=== PATIENT | female | born 1945 | race Caucasian/White ===

== ENCOUNTER 2018-02-06 13:15 | Inpatient (IN) ==
--- NOTE | 2018-02-06 13:21 | Emergency Department Note ---
Disposition Clinical Impression: Anemia Qualifiers: Anemia type: unspecified type Qualified Code(s): D64.9 - Anemia, unspecified Disposition: Transfer SNF General Adult HPI - General Chief complaint: ED General Medical Stated complaint: LOW HEMOGLOBIN Time Seen by Provider: 02/06/18 13:15 Source: patient Mode of arrival: EMS Limitations: no limitations Nursing Notes Reviewed: Yes Vital Signs Reviewed: Yes - History of Present Illness HPI Narrative: Patient presents by EMS from the [facility] where she resides feeling weak and tired for the past 3 days. Her hemoglobin was reportedly 3.5 so she was sent to the emergency department. She denies any fevers or chills nausea vomiting chest pain shortness of breath or other complaints Onset (ago): day(s) (3) Location: other (generalized weakness) Pain Scale: 0 Improves with: nothing Worsens with: nothing Associated symptoms: Reports: weakness. Denies: chest pain, cough, fever/chills , headaches, loss of appetite, nausea/vomiting, shortness of breath - Related Data Home Medications Medication Instructions Recorded Confirmed Divalproex Sodium [Depakote] 125 mg PO TID 08/24/16 08/24/16 Levothyroxine [Synthroid] 50 mcg PO 0630 08/24/16 02/06/18 Magnesium Hydroxide [Milk of 30 ml PO DAILY PRN 08/24/16 02/06/18 Magnesia] Perphenazine 2 mg PO DAILY 08/24/16 02/06/18 Venlafaxine [Effexor] 75 mg PO BID 08/24/16 02/06/18 Atorvastatin Calcium [Lipitor] 20 mg PO HS 02/06/18 02/06/18 Cran/Vitc/Mannose/Fos/Bromeln 3,875 mg PO BID 02/06/18 02/06/18 [Uti-Stat Liquid] Mv-Mn/FA/Vit K/Lycop/Lut/Coq10 1 each PO DAILY 02/06/18 02/06/18 [Daily Multivitamin Capsule] Colt/Poly/DEX Opth OINT [Maxitrol 1 appl LEFT EYE DAILY 02/06/18 02/06/18 OPTH Oint] Previous Rx's Medication Instructions Recorded Allopurinol [Zyloprim] 200 mg PO DAILY tablet 08/27/16 Cholecalciferol (D-3) [Vitamin D] 1,000 unit PO DAILY tablet 08/27/16 Aspirin [Lo-Dose Aspirin EC] 81 mg PO DAILY 365 Days tablet. 02/08/18 Metoprolol [Lopressor] 50 mg PO BID #0 02/08/18 Allergies Allergy/AdvReac Type Severity Reaction Status Date / Time aripiprazole [From Abilify] Allergy Rash Verified 08/24/16 12:52 All systems ED: reviewed and negative except as stated. Review of Systems: As Per HPI Constitutional: Reports: as per HPI, weakness. Denies: fever, chills, weight change Eyes: Denies: eye pain, eye discharge, vision change ENT ED: Denies: ear pain, throat pain, dental pain, hearing loss, epistaxis, congestion, dysphagia Cardiovascular: Denies: chest pain, palpitations, dyspnea on exertion, edema, syncope Respiratory: Denies: cough, dyspnea, wheezes, hemoptysis, stridor Gastrointestinal: Denies: abdominal pain, nausea, vomiting, diarrhea, constipation, hematemesis, melena, hematochezia Genitourinary: Reports: as per HPI Musculoskeletal: Denies: back pain, neck pain, arthralgia, myalgia Integumentary: Denies: rash, abrasion, lesions Neurological: Denies: headache, weakness, numbness, paresthesias, confusion, abnormal gait, vertigo Psychiatric: Denies: anxiety, depression, suicidal thoughts, homicidal thoughts , auditory hallucinations, visual hallucinations Endocrine: Denies: fatigue Hematological/Lymphatic: Denies: easy bleeding, easy bruising Allergic/Immunologic: Denies: facial swelling, urticaria Past Medical History - Past Medical History Attestation: Yes The following information was validated with the patient. Source: patient Medical history: Reports: dementia, GERD, hyperlipidemia, hypertension, renal disease, thyroid disease, other Psychiatric history: Reports: anxiety, depression - Social History Smoking Status: Unknown if ever smoked Smokeless Tobacco Status: No Alcohol use: Reports: none Drug use: Reports: none Physical Exam - General Limitations: no limitations General appearance: alert, in no apparent distress - Head Head exam: atraumatic, normocephalic, normal inspection - Eye Eye exam: Present: normal appearance, PERRL, EOMI, other (pale conjunctival membranes) - ENT ENT exam: normal exam, normal oropharynx, mucous membranes moist - Neck Neck exam: Present: normal inspection, full ROM, trachea midline - Chest Chest inspection: Present: normal inspection, symmetric chest wall rise - Respiratory Respiratory exam: Present: normal lung sounds bilaterally - Cardiovascular Cardiovascular exam: Present: regular rate, normal rhythm, normal heart sounds - Abdominal Exam Abdominal exam: Present: soft, Non-Tender, normal bowel sounds - Extremities Exam Extremities exam: Present: normal inspection - Neurological Exam Neurological exam: Present: alert - Psychiatric Psychiatric exam: Present: normal affect, normal mood - Skin Skin exam: Present: warm, dry, intact Course Vital Signs Temperature 97.3 F L 02/06/18 13:17 Pulse Rate 97 02/06/18 13:17 Respiratory Rate 16 02/06/18 13:17 Blood Pressure 131/52 02/06/18 13:17 O2 Sat by Pulse Oximetry 96 02/06/18 13:17 Temperature 97.4 F L 02/08/18 06:41 Pulse Rate 77 02/08/18 06:41 Respiratory Rate 16 02/08/18 06:41 Blood Pressure 145/72 02/08/18 06:40 O2 Sat by Pulse Oximetry 93 02/08/18 06:41 Oxygen Delivery Oxygen Delivery Nasal Cannula Medical Decision Making - Lab Data Lab results reviewed: Yes I reviewed the patient's lab results. Result diagrams: 02/08/18 07:15 02/07/18 02:29 Lab Results 02/06/18 02/06/18 02/06/18 Range/Units 13:43 13:43 13:43 WBC 11.4 H (4.3-11.1) K/mcL RBC 1.88 L (3.82-4.97) M/mcL Hgb 3.7 L* (11.5-15.4) g/dL Hct 14.4 L* (35.3-44.9) % MCV 76.6 L (83.0-100.0) fL MCH 19.7 L (28.0-33.3) pg MCHC 25.7 L (31.6-35.5) g/dL RDW 20.2 H (11.5-14.5) % Plt Count 469 H (140-400) K/mcL MPV 9.3 L (9.4-12.4) fL Immature Gran % 0.8 (0-4) % Seg Neutrophils % 82.7 % Lymphocytes % 9.6 % Monocytes % 6.7 % Eosinophils % 0.0 % Basophils % 0.2 % Neutrophils # 9.4 H (1.6-8.9) K/mcL Lymphocytes # 1.1 (0.6-4.6) K/mcL Monocytes # 0.8 (0.0-1.3) K/mcL Eosinophils # 0.0 (0.0-0.6) K/mcL Basophils # 0.0 (0.0-0.2) K/mcL Nucleated RBCs/100 WBC 1.1 H (0) /100 WBC Polychromasia 1+ A (Not Present) Hypochromasia Present A (Not Present) Anisocytosis 1+ A (Not Present) Microcytosis Present A (Not Present) PT 15.3 H (9.4-12.1) Seconds INR 1.4 APTT 30.9 (26.0-36.0) Seconds Sodium 138 (136-145) mEq/L Potassium 4.2 (3.5-5.1) mEq/L Chloride 106 (98-107) mEq/L Carbon Dioxide 25 (23-29) mEq/L BUN 29 H (8-23) mg/dL Creatinine 1.00 (0.60-1.20) mg/dL Est GFR ( Amer) > 60 (> 60) Est GFR (Non-Af Amer) 55 L (> 60) BUN/Creatinine Ratio 29 H (6-26) Glucose 155 H (70-105) mg/dL Calculated Osmolality 295 (280-300) Calcium 8.7 (8.6-10.3) mg/dL Stool Occult Blood (Negative) Blood Type Antibody Screen Crossmatch 02/06/18 02/06/18 02/07/18 Range/Units 13:43 14:05 02:29 WBC 11.2 H (4.3-11.1) K/mcL RBC 2.55 L (3.82-4.97) M/mcL Hgb 6.2 L D (11.5-15.4) g/dL Hct 20.7 L (35.3-44.9) % MCV 81.2 L (83.0-100.0) fL MCH 24.3 L (28.0-33.3) pg MCHC 30.0 L (31.6-35.5) g/dL RDW 21.0 H (11.5-14.5) % Plt Count 390 (140-400) K/mcL MPV 9.1 L (9.4-12.4) fL Immature Gran % 0.7 (0-4) % Seg Neutrophils % 75.7 % Lymphocytes % 14.6 % Monocytes % 8.6 % Eosinophils % 0.0 % Basophils % 0.4 % Neutrophils # 8.5 (1.6-8.9) K/mcL Lymphocytes # 1.6 (0.6-4.6) K/mcL Monocytes # 1.0 (0.0-1.3) K/mcL Eosinophils # 0.0 (0.0-0.6) K/mcL Basophils # 0.0 (0.0-0.2) K/mcL Nucleated RBCs/100 WBC 0.6 H (0) /100 WBC Polychromasia (Not Present) Hypochromasia (Not Present) Anisocytosis (Not Present) Microcytosis (Not Present) PT (9.4-12.1) Seconds INR APTT (26.0-36.0) Seconds Sodium (136-145) mEq/L Potassium (3.5-5.1) mEq/L Chloride (98-107) mEq/L Carbon Dioxide (23-29) mEq/L BUN (8-23) mg/dL Creatinine (0.60-1.20) mg/dL Est GFR ( Amer) (> 60) Est GFR (Non-Af Amer) (> 60) BUN/Creatinine Ratio (6-26) Glucose (70-105) mg/dL Calculated Osmolality (280-300) Calcium (8.6-10.3) mg/dL Stool Occult Blood Negative (Negative) Blood Type O POSITIVE Antibody Screen NEGATIVE Crossmatch See Detail 02/07/18 Range/Units 02:29 WBC (4.3-11.1) K/mcL RBC (3.82-4.97) M/mcL Hgb (11.5-15.4) g/dL Hct (35.3-44.9) % MCV (83.0-100.0) fL MCH (28.0-33.3) pg MCHC (31.6-35.5) g/dL RDW (11.5-14.5) % Plt Count (140-400) K/mcL MPV (9.4-12.4) fL Immature Gran % (0-4) % Seg Neutrophils % % Lymphocytes % % Monocytes % % Eosinophils % % Basophils % % Neutrophils # (1.6-8.9) K/mcL Lymphocytes # (0.6-4.6) K/mcL Monocytes # (0.0-1.3) K/mcL Eosinophils # (0.0-0.6) K/mcL Basophils # (0.0-0.2) K/mcL Nucleated RBCs/100 WBC (0) /100 WBC Polychromasia (Not Present) Hypochromasia (Not Present) Anisocytosis (Not Present) Microcytosis (Not Present) PT (9.4-12.1) Seconds INR APTT (26.0-36.0) Seconds Sodium 139 (136-145) mEq/L Potassium 4.1 (3.5-5.1) mEq/L Chloride 107 (98-107) mEq/L Carbon Dioxide 23 (23-29) mEq/L BUN 23 (8-23) mg/dL Creatinine 0.71 (0.60-1.20) mg/dL Est GFR ( Amer) > 60 (> 60) Est GFR (Non-Af Amer) > 60 (> 60) BUN/Creatinine Ratio 32 H (6-26) Glucose 109 H (70-105) mg/dL Calculated Osmolality 292 (280-300) Calcium 8.3 L (8.6-10.3) mg/dL Stool Occult Blood (Negative) Blood Type Antibody Screen Crossmatch
[2018-02-06 13:48] LABS: Basophils % 0.2 %; Immature Granulocytes % 0.8 % (0-4); Lymphocytes # 1.1 K/mcL (0.6-4.6); Lymphocytes % 9.6 %; Mean Corpuscular HGB Conc 25.7 g/dL (31.6-35.5); Mean Corpuscular Hemoglobin 19.7 pg (28.0-33.3); Mean Corpuscular Volume 76.6 fL (83.0-100.0); Mean Platelet Volume 9.3 fL (9.4-12.4); Monocytes # 0.8 K/mcL (0.0-1.3); Monocytes % 6.7 %; Neutrophils # 9.4 K/mcL (1.6-8.9); Nucleated Red Blood Cells 1.1 /100 WBC (0); Platelet Count 469 K/mcL (140-400); Red Blood Count 1.88 M/mcL (3.82-4.97); Red Cell Distribution Width 20.2 % (11.5-14.5); Segmented Neutrophils % 82.7 %
[2018-02-06 13:54] LABS: INR 1.4; Prothrombin Time 15.3 Seconds (9.4-12.1)
[2018-02-06 13:56] LABS: Activated Partial Thrombo Time 30.9 Seconds (26.0-36.0)
[2018-02-06 13:58] LABS: Hematocrit 14.4 % (35.3-44.9); Hemoglobin 3.7 g/dL (11.5-15.4)
[2018-02-06 14:03] LABS: BUN/Creatinine Ratio 29 (6-26); Blood Urea Nitrogen 29 mg/dL (8-23); Calcium 8.7 mg/dL (8.6-10.3); Carbon Dioxide 25 mEq/L (23-29); Chloride 106 mEq/L (98-107); Glucose 155 mg/dL (70-105); Osmolality,Calculated 295 (280-300); Potassium 4.2 mEq/L (3.5-5.1); Sodium 138 mEq/L (136-145); eGFR For Non-African Americans 55 (> 60)
[2018-02-06 14:34] LABS: Anisocytosis 1+ (Not Present); Hypochromasia Present (Not Present); Microcytosis Present (Not Present); Polychromasia 1+ (Not Present)
[2018-02-06] MEDS ORDERED: Naloxone 0.4 MG/ML INJ IVP PRN (16:20)
[2018-02-06] MEDS ORDERED: 0.9 % Sodium Chloride 1,000 ML IVC SCH (16:20)
[2018-02-06] MEDS ORDERED: MOM Conc 10 ML UD.LIQ PO PRN (16:20)
--- NOTE | 2018-02-06 17:08 | Internal Med History&Physical ---
Date of Encounter: 02/06/18 Time of Encounter: 16:40 Assessment and Plan (1) Anemia Current visit: No Status: Acute Suspect iron deficiency. Will order anemia testing and give blood transfusion. Hold Xarelto for now Qualifiers: Anemia type: unspecified type Qualified Code(s): D64.9 - Anemia, unspecified (2) Vitamin D deficiency Current visit: Yes Status: Acute Vitamin D level was 19 on 08/25/2016. Will recheck. (3) ARF (acute renal failure) Current visit: No Status: Acute BUN and creatinine were 29 and 1.00 respectively in emergency room with estimated GFR 55. Stool was guaiac negative. Will hold lisinopril and monitor renal indices. Qualifiers: Acute renal failure type: unspecified Qualified Code(s): N17.9 - Acute kidney failure, unspecified (4) Hypothyroidism Current visit: No Status: Chronic Continue Synthroid Qualifiers: Hypothyroidism type: unspecified Qualified Code(s): E03.9 - Hypothyroidism , unspecified Internal Medicine - H&P: HPI Chief complaint: Anemia Admitted From: Emergency Dept Plans for Post Hospital Care: Transfer [facility] History of present illness: Ms. Davies is a 72 year old female who was sent to emergency room from the senior care after she was found to have severe anemia on blood tests drawn today. She has had 2-3 falls without significant injury in the past few weeks. Evaluation in emergency room confirmed severe anemia with hemoglobin 3.7. Stool was Hemoccult negative. She was admitted to [facility] floor for blood transfusion and ongoing care needs. She denies abdominal pain melena or hematochezia. Review of available records show at the August [facility] hospitalization she reported history of anemia in the past but it had resolved. She has been on Xarelto for history of bilateral DVTs in 2012. She has history of hypertension but no PR heart failure or pulmonary embolus. She does ambulate some at the senior care. Past Med Surg Social Fam HX - Past Medical History Medical history: dementia, GERD, hyperlipidemia, hypertension, renal disease, thyroid disease, other Psychiatric history: anxiety, depression - Social History Smoking Status: Unknown if ever smoked Smokeless Tobacco Status: No Alcohol use: none Drug use: none Internal Medicine - H&P: Meds Divalproex Sodium [Depakote] 125 mg PO TID 08/24/16 [History] Levothyroxine [Synthroid] 50 mcg PO 0630 08/24/16 [History] Lisinopril [Zestril] 20 mg PO DAILY 08/24/16 [History] Magnesium Hydroxide [Milk of Magnesia] 30 ml PO DAILY PRN 08/24/16 [History] Metoprolol [Lopressor] 25 mg PO BID 08/24/16 [History] Perphenazine 2 mg PO DAILY 08/24/16 [History] Rivaroxaban [Xarelto] 20 mg PO DAILY 08/24/16 [History] Venlafaxine [Effexor] 75 mg PO BID 08/24/16 [History] Allopurinol [Zyloprim] 200 mg PO DAILY tablet 08/27/16 [Rx] Cholecalciferol (D-3) [Vitamin D] 1,000 unit PO DAILY tablet 08/27/16 [Rx] Atorvastatin Calcium [Lipitor] 20 mg PO HS 02/06/18 [History] Cran/Vitc/Mannose/Fos/Bromeln [Uti-Stat Liquid] 3,875 mg PO BID 02/06/18 [ History] Mv-Mn/FA/Vit K/Lycop/Lut/Coq10 [Daily Multivitamin Capsule] 1 each PO DAILY [History] Colt/Poly/DEX Opth OINT [Maxitrol OPTH Oint] 1 appl LEFT EYE DAILY 02/06/18 [ History] 3 Allergy/AdvReac Type Severity Reaction Status Date / Time aripiprazole [From Abilify] Allergy Rash Verified 08/24/16 12:52 All Systems PM: A 10-system review of systems was performed and is negative for pertinent findings except as documented above in the HPI. Review of systems: Gen.: Her weight has increased from 75.886 kg on 08/26/2016 to 92.986 kg on admission today. Cardiovascular: As per history of present illness Respiratory: She is a lifelong nonsmoker and has no known chronic lung disease. She has had a right pulmonary nodule mentioned in the past but chest x-ray July 2016 did not mention any nodules. GI: She has GERD but no known disorders of her liver gallbladder or exocrine pancreas. She had colonoscopy with polypectomy several years ago. : She was seen by a urologist for urinary retention during a 2016 stay at [facility]. She has not had disorders of her kidney or bladder otherwise. She had bladder lift surgery in the distant past. Neurologic: She has a diagnosis of dementia. She has not had large distribution strokes or seizures. CT of the head October 2013 showed chronic small vessel ischemic changes with extensive opacification of the ethmoid sinuses Endocrine: She has no known diabetes but does have hyperlipidemia and hypothyroidism. TSH was normal at 3.949 on 12/13/2017. Hematology/oncology: No history of blood disorders or cancers. She had anemia in the past that has resolved. Psychiatric: She has had delusional psychosis with paranoia and anxiety and depression. [place] skeletal: She has no significant DJD or gout. - Constitutional Vitals: Temp Pulse Resp BP Pulse Ox 97.2 F L 92 20 126/78 100 02/06/18 16:19 02/06/18 16:19 02/06/18 16:19 02/06/18 16:19 02/06/18 16:19 Exam: Gen.: She is a well-developed well-nourished female resting comfortably in bed who appears in no acute distress HEENT: Head is atraumatic and normal cephalic. Eyes: She has pale sclera. There is no icterus noted. Mouth: Mucosa is moist. Neck: Supple and nontender. There is no thyromegaly or adenopathy noted. Heart: Regular without murmurs gallops or ectopics Lungs: No wheezes or crackles are heard. Abdomen: Soft and nontender. No masses or guarding are noted. Extremities: There is no cyanosis edema or clubbing noted. Dorsalis pedis and posttibial pulses are trace palpable bilaterally. Neurologic: Mental status: She is able to answer some questions but is a fair historian. She does not remember some details of her history. Cranial nerves: Smile is symmetric. Forehead wrinkles bilaterally. Tongue protrudes midline. EOMI. Motor: There is no pronator drift. Cerebellar: Finger to nose is intact bilaterally. Skin: Warm and dry. Pale Internal Med - H&P Results - Labs CBC & Chem 7: 02/06/18 13:43 02/06/18 13:43
[2018-02-06] MEDS ORDERED: 0.9 % Sodium Chloride 250 ML ONE (17:09)
[2018-02-07 02:34] LABS: Basophils % 0.4 %; Hematocrit 20.7 % (35.3-44.9); Hemoglobin 6.2 g/dL (11.5-15.4); Immature Granulocytes % 0.7 % (0-4); Lymphocytes # 1.6 K/mcL (0.6-4.6); Lymphocytes % 14.6 %; Mean Corpuscular Hemoglobin 24.3 pg (28.0-33.3); Mean Corpuscular Volume 81.2 fL (83.0-100.0); Mean Platelet Volume 9.1 fL (9.4-12.4); Monocytes % 8.6 %; Neutrophils # 8.5 K/mcL (1.6-8.9); Nucleated Red Blood Cells 0.6 /100 WBC (0); Platelet Count 390 K/mcL (140-400); Red Blood Count 2.55 M/mcL (3.82-4.97); Segmented Neutrophils % 75.7 %
[2018-02-07 03:03] LABS: BUN/Creatinine Ratio 32 (6-26); Blood Urea Nitrogen 23 mg/dL (8-23); Calcium 8.3 mg/dL (8.6-10.3); Carbon Dioxide 23 mEq/L (23-29); Chloride 107 mEq/L (98-107); Glucose 109 mg/dL (70-105); Osmolality,Calculated 292 (280-300); Potassium 4.1 mEq/L (3.5-5.1); Sodium 139 mEq/L (136-145); eGFR For Non-African Americans > 60 (> 60)
[2018-02-07] MEDS ORDERED: 0.9 % Sodium Chloride 250 ML ONE ×2 (03:22→19:20)
[2018-02-07] MEDS: Levothyroxine 25 MCG TABLET PO SCH (06:33)
[2018-02-07] MEDS: Multivit/Ca/Min/Fe/FA 1 TAB TABLET PO SCH (08:25)
[2018-02-07] MEDS: Cholecalciferol (D-3) 1,000 UNIT TABLET PO SCH (08:25)
[2018-02-07] MEDS: Lisinopril 20 MG TABLET PO SCH (08:25)
[2018-02-07] MEDS: Perphenazine 2 MG TABLET PO SCH (08:26)
--- NOTE | 2018-02-07 10:47 | Internal Med Progress Note ---
Date of Encounter: 02/07/18 Time of Encounter: 10:35 - Assessment and plan (1) Anemia Current Visit: No Status: Acute Assessment and plan: February 07. Hemoglobin gregg to 6.2 after transfusions. We will give 2 additional transfusions. Anemia testing showed iron deficiency. We will give IV iron dextran. Recheck labs in a.m. Possible discharge tomorrow. Qualifiers: Anemia type: unspecified type Qualified Code(s): D64.9 - Anemia, unspecified (2) Vitamin D deficiency Current Visit: Yes Status: Acute Assessment and plan: February 07. Vitamin D level pending (3) ARF (acute renal failure) Current Visit: No Status: Acute Assessment and plan: February 07. Resolved with BUN and creatinine 23 and 0.71 respectively and estimate a GFR greater than 60. Continue to hold lisinopril. Qualifiers: Acute renal failure type: unspecified Qualified Code(s): N17.9 - Acute kidney failure, unspecified (4) Hypothyroidism Current Visit: No Status: Chronic Assessment and plan: February 07. Continue Synthroid Qualifiers: Hypothyroidism type: unspecified Qualified Code(s): E03.9 - Hypothyroidism , unspecified - Subjective Interval history: February 07. She has no new complaints and feels well. - Constitutional Vitals: Temp Pulse Resp BP Pulse Ox 98.5 F 78 20 117/75 97 02/07/18 10:04 02/07/18 10:04 02/07/18 10:04 02/07/18 10:04 02/07/18 10:04 Exam: She is resting comfortably in bed. Extremities show no edema. Her affect is bright and cheerful. I reviewed her medications and lab results. Internal Medicine: Result - Labs CBC & Chem 7: 02/07/18 02:29 02/07/18 02:29 Labs: Short CBC 02/07/18 Range/Units 02:29 WBC 11.2 H (4.3-11.1) K/mcL Hgb 6.2 L D (11.5-15.4) g/dL Hct 20.7 L (35.3-44.9) % Plt Count 390 (140-400) K/mcL Neutrophils # 8.5 (1.6-8.9) K/mcL BMP 02/07/18 02:29 Sodium 139 Potassium 4.1 Chloride 107 Carbon Dioxide 23 BUN 23 Creatinine 0.71 Glucose 109 H Calcium 8.3 L - ABG Interpretation ABG results: PT/INR, D-dimer PT 15.3 Seconds (9.4-12.1) H 02/06/18 13:43 Consult Discharge Plan - Plan Referrals: NONE,PCP [Primary Care Provider] - 1 week
[2018-02-07] MEDS: Maxitrol Opth OINT 3.5 GM TUBE LEFT EYE SCH (11:26)
[2018-02-07] MEDS ORDERED: IRON DEXTRAN COMPLEX IVPB ONE (13:00)
[2018-02-07] MEDS ORDERED: SODIUM CHLORIDE 0.9% IVPB ONE (13:00)
[2018-02-08] MEDS ORDERED: 0.9 % Sodium Chloride 250 ML ONE (02:17)
[2018-02-08 06:41] VITALS: BP 145/72
[2018-02-08] MEDS: Levothyroxine 25 MCG TABLET PO SCH (06:43)
[2018-02-08] MEDS: Multivit/Ca/Min/Fe/FA 1 TAB TABLET PO SCH (08:06)
[2018-02-08] MEDS: Cholecalciferol (D-3) 1,000 UNIT TABLET PO SCH (08:06)
[2018-02-08] MEDS: Lisinopril 20 MG TABLET PO SCH (08:06)
[2018-02-08] MEDS: Perphenazine 2 MG TABLET PO SCH (08:06)
[2018-02-08 08:07] LABS: Basophils # 0.1 K/mcL (0.0-0.2); Basophils % 0.6 %; Hematocrit 35.4 % (35.3-44.9); Hemoglobin 10.9 g/dL (11.5-15.4); Immature Granulocytes % 0.7 % (0-4); Lymphocytes # 1.6 K/mcL (0.6-4.6); Lymphocytes % 16.4 %; Mean Corpuscular HGB Conc 30.8 g/dL (31.6-35.5); Mean Corpuscular Volume 84.3 fL (83.0-100.0); Mean Platelet Volume 10.2 fL (9.4-12.4); Monocytes # 0.9 K/mcL (0.0-1.3); Monocytes % 9.9 %; Neutrophils # 6.8 K/mcL (1.6-8.9); Nucleated Red Blood Cells 1.7 /100 WBC (0); Platelet Count 336 K/mcL (140-400); Red Cell Distribution Width 18.6 % (11.5-14.5); Segmented Neutrophils % 72.4 %
[2018-02-08] MEDS: Maxitrol Opth OINT 3.5 GM TUBE LEFT EYE SCH (08:09)
--- NOTE | 2018-02-08 10:00 | Discharge Summary ---
Date of Encounter: 02/08/18 Time of Encounter: 09:50 - Discharge Diagnosis (1) Anemia Priority: Primary Status: Acute Qualifiers: Anemia type: unspecified type Qualified Code(s): D64.9 - Anemia, unspecified (2) Vitamin D deficiency Priority: Secondary Status: Acute (3) ARF (acute renal failure) Priority: Secondary Status: Resolved Qualifiers: Acute renal failure type: unspecified Qualified Code(s): N17.9 - Acute kidney failure, unspecified (4) Hypothyroidism Priority: Secondary Status: Chronic Qualifiers: Hypothyroidism type: unspecified Qualified Code(s): E03.9 - Hypothyroidism , unspecified Hospital course: Ms. Davies is a 72 year old female who was sent to emergency room from the shelter after she was found to have severe anemia on blood tests drawn today. She has had 2-3 falls without significant injury in the past few weeks. Evaluation in emergency room confirmed severe anemia with hemoglobin 3.7. Stool was Hemoccult negative. She was admitted to [facility] floor for blood transfusion and ongoing care needs. Initial orders were written by the emergency room physician. I saw her on February 06 and performed a history and physical. Xarelto was discontinued. She was given 4 units packed red blood cells during the course of her hospital stay. Hemoglobin gregg to 10.9 on day of discharge. She will be started on aspirin 81 mg daily at discharge and remain off Xarelto. Lisinopril was held. Her blood pressure returned to satisfactory range. Azotemia resolved with creatinine decreasing to 0.71 and estimated GFR greater than 60. Vitamin D level was ordered with results pending at time of discharge. On February 08 she was stable for discharge back to [facility] where she will follow with me. - Time Spent with Patient Total time spent providing and/or coordinating discharge services: - Discharge Medications Prescriptions: Aspirin [Lo-Dose Aspirin EC] 81 mg PO DAILY 365 Days tablet.dr Johnson Medications: Divalproex Sodium [Depakote] 125 mg PO TID 08/24/16 [History] Levothyroxine [Synthroid] 50 mcg PO 0630 08/24/16 [History] Magnesium Hydroxide [Milk of Magnesia] 30 ml PO DAILY PRN 08/24/16 [History] Perphenazine 2 mg PO DAILY 08/24/16 [History] Venlafaxine [Effexor] 75 mg PO BID 08/24/16 [History] Allopurinol [Zyloprim] 200 mg PO DAILY tablet 08/27/16 [Rx] Cholecalciferol (D-3) [Vitamin D] 1,000 unit PO DAILY tablet 08/27/16 [Rx] Atorvastatin Calcium [Lipitor] 20 mg PO HS 02/06/18 [History] Cran/Vitc/Mannose/Fos/Bromeln [Uti-Stat Liquid] 3,875 mg PO BID 02/06/18 [ History] Mv-Mn/FA/Vit K/Lycop/Lut/Coq10 [Daily Multivitamin Capsule] 1 each PO DAILY [History] Colt/Poly/DEX Opth OINT [Maxitrol OPTH Oint] 1 appl LEFT EYE DAILY 02/06/18 [ History] Aspirin [Lo-Dose Aspirin EC] 81 mg PO DAILY 365 Days tablet. 02/08/18 [Rx] Metoprolol [Lopressor] 50 mg PO BID #0 02/08/18 [Rx] Allergies/Adverse Reactions: 3 Allergy/AdvReac Type Severity Reaction Status Date / Time aripiprazole [From Abilify] Allergy Rash Verified 08/24/16 12:52 Date of admission: 02/07/18 10:47 Primary care physician: Berto Santiago M.D. - Constitutional Vitals: Temp Pulse Resp BP Pulse Ox 97.4 F L 77 16 145/72 93 02/08/18 06:41 02/08/18 06:41 02/08/18 06:41 02/08/18 06:40 02/08/18 06:41 - Patient Status Disposition: Transfer SNF Functional capacity at discharge: uses cane/walker Overall status at discharge: patient is progressing back to baseline - Discharge Instructions - Diet and Activity Activity: resume usual activities as tolerated Diet: advance to your usual diet
--- NOTE | 2018-02-08 10:09 | Physician Discharge Referral ---
ExtendedCare Referral Info Transfer To: [facility] Provider in Charge: Jack Provider in Charge after Transfer: PCP (Jack) - Diagnosis (1) Anemia Priority: Primary Status: Acute (2) Vitamin D deficiency Priority: Secondary Status: Acute (3) ARF (acute renal failure) Priority: Secondary Status: Resolved (4) Hypothyroidism Priority: Secondary Status: Chronic Prognosis: Good Aware of Diagnosis: Patient Aware of Prognosis: Patient - Transfer Medications Prescriptions: Aspirin [Lo-Dose Aspirin EC] 81 mg PO DAILY 365 Days tablet. Home Medications: Divalproex Sodium [Depakote] 125 mg PO TID 08/24/16 [History] Levothyroxine [Synthroid] 50 mcg PO 0630 08/24/16 [History] Magnesium Hydroxide [Milk of Magnesia] 30 ml PO DAILY PRN 08/24/16 [History] Perphenazine 2 mg PO DAILY 08/24/16 [History] Venlafaxine [Effexor] 75 mg PO BID 08/24/16 [History] Allopurinol [Zyloprim] 200 mg PO DAILY tablet 08/27/16 [Rx] Cholecalciferol (D-3) [Vitamin D] 1,000 unit PO DAILY tablet 08/27/16 [Rx] Atorvastatin Calcium [Lipitor] 20 mg PO HS 02/06/18 [History] Cran/Vitc/Mannose/Fos/Bromeln [Uti-Stat Liquid] 3,875 mg PO BID 02/06/18 [ History] Mv-Mn/FA/Vit K/Lycop/Lut/Coq10 [Daily Multivitamin Capsule] 1 each PO DAILY [History] Colt/Poly/DEX Opth OINT [Maxitrol OPTH Oint] 1 appl LEFT EYE DAILY 02/06/18 [ History] Aspirin [Lo-Dose Aspirin EC] 81 mg PO DAILY 365 Days tablet. 02/08/18 [Rx] Metoprolol [Lopressor] 50 mg PO BID #0 02/08/18 [Rx] Allergies/Adverse Reactions: 3 Allergy/AdvReac Type Severity Reaction Status Date / Time aripiprazole [From Abilify] Allergy Rash Verified 08/24/16 12:52 - Respiratory Orders Smoking Cessation: Smoking cessation has been advised. For more information, call the [place] Tobacco Quit Line at 9-655-SMRS-NOW. - Lab Orders Lab Orders: Other (include drug levels w/frequency) (CBC with differential, BMP in 5 days) - Mobility Orders Ambulate - Rehabiliation Orders Rehab Potential: Good CERTIFICATION: I certify that the transfer of the above named patient to an Extended Care Facility is necessary for the continuing treatment of the diagnosis listed. The above information is true and accurate reflection of patient's current condition. Confidential - Redisclosure prohibited without a patient's written consent.
== END 2018-02-08 11:29 | DRG 812 ==
LOC: INPPIK 13:15 → EMEROOPIK 13:15 → INPPIK 16:00
PROVIDERS: ADMIT Internal Medicine; ATTEND Internal Medicine